=== PATIENT | male | born 1980 ===

== ENCOUNTER → 2016-11-07 | Outpatient (CLI) | payer OTHER | LOC: BMCIMAGING 10:04 | PROVIDERS: ATTEND Podiatrist Foot & Ankle Surgery | DX: M25.571 Pain in right ankle and joints of right foot (principal); M77.51 Other enthesopathy of right foot and ankle ==

== ENCOUNTER → 2017-05-01 | Outpatient (CLI) | payer OTHER | LOC: BMCIMAGING 11:07 | PROVIDERS: ATTEND Podiatrist Foot & Ankle Surgery | DX: Z09 Encounter for follow-up examination after completed treatment for conditions other than malignant neoplasm (principal); Z98.890 Other specified postprocedural states ==

== ENCOUNTER 2018-03-21 15:53 | Inpatient (IN) | payer OTHER ==
--- NOTE | 2018-03-21 17:17 | EDPHY ---
H & P Time Seen by Provider: 03/21/18 17:07 HPI/ROS: CHIEF COMPLAINT: Abdominal pain HISTORY OF PRESENT ILLNESS: Started with epigastric abdominal pain 2 days ago moved to his lower abdomen. Went to his primary care provider at [facility] today was referred here because of white blood cell count 13.7. He says he had some anorexia yesterday, pain is worse with movement today. Does not radiate. Not associated with urinary or testicular symptoms or fever. No vomiting or diarrhea. He feels little bit constipated. No recent injury or trauma. Symptoms moderate. REVIEW OF SYSTEMS: Eye: no change in vision ENT: no sore throat Cardiac: no chest pain or syncope Pulmonary: no cough or SOB Abdomen: HPI Musculoskeletal: no back pain Skin: no rash Neuro: no headache Constitutional: no fever : no urinary symptoms A comprehensive 10 point review of systems is otherwise negative aside from elements mentioned in the history of present illness. PAST MEDICAL HISTORY: Right ankle surgery Social history: Nonsmoker General Appearance: Alert and conversant, cooperative. Eyes: No scleral icterus. ENT, Mouth: Normal mucous membranes. Respiratory: Normal respiratory effort, breath sounds equal, lungs are clear to auscultation. Cardiovascular: Regular rate and rhythm. Gastrointestinal: Right lower quadrant tenderness with decreased bowel sounds. Normal male with no hernia. Neurological: Alert, face symmetric, normal motor and sensory in extremities. Skin: Warm and dry, no rashes. Musculoskeletal: No peripheral edema. Psychiatric: Not agitated. Emergency Department course/MDM: Labs from earlier today at 3:30 p.m. Reviewed include creatinine 1.[address] abdomen and pelvis discussed and consented to evaluate for appendicitis. Discussed with Keith at 1811. 1853: Dr. Parker requests admission, 1 g IV ertapenem. Smoking Status: Never smoked Constitutional: Initial Vital Signs Temperature (C) 37 C 03/21/18 15:56 Heart Rate 95 03/21/18 15:56 Respiratory Rate 16 03/21/18 15:56 Blood Pressure 165/98 H 03/21/18 15:56 O2 Sat (%) 94 03/21/18 15:56 O2 Delivery Mode Room Air Allergies/Adverse Reactions: No Known Allergies Allergy (Verified 03/21/18 15:56) Home Medications: Medication Instructions Recorded NK [No Known Home Meds] 03/21/18 Medical Decision Making - Diagnostics Imaging Results: Imaging Impressions Abdomen CT 03/21/18 17:17 Impression: 1. Regional inflammation in the right lower quadrant involving the appendix and terminal ileum. It is unclear whether this represents appendicitis with reactive inflammation of the terminal ileum or ileitis resulting in secondary inflammation of the appendix. 2. Trace fluid in the low pelvis. No abscess or evidence of bowel perforation. 3. Mild adynamic ileus. Less likely partial small bowel obstruction. Findings discussed with Emergency Department physician, Alejo Raymond on 03/21/2018 , 18:00. Imaging: Discussed imaging studies w/ scallop cutter Radiologist, I viewed and interpreted images myself Differential Diagnosis: Differential considered including but not limited to appendicitis, mesenteric adenitis, hernia, gastroenteritis. - Data Points Medications Given: Discontinued Medications Sodium Chloride (Ns) 1,000 mls @ 0 mls/hr IV EDNOW ONE; Wide Open PRN Reason: Protocol Stop: 03/21/18 18:12 Last Admin: 03/21/18 18:55 Dose: 1,000 mls Ertapenem 1 gm/ Sodium (Chloride) 100 mls @ 200 mls/hr IV EDNOW ONE PRN Reason: Protocol Stop: 03/21/18 19:21 Last Admin: 03/21/18 19:25 Dose: 100 mls Departure - Departure Disposition: [facility] Inpatient Acute Clinical Impression: Appendicitis Qualifiers: Appendicitis type: acute appendicitis Acute appendicitis type: with localized peritonitis Appendicitis gangrene presence: unspecified whether gangrene present Appendicitis perforation presence: unspecified whether perforation present Appendicitis abscess presence: unspecified whether abscess present Qualified Code(s): K35.30 - Acute appendicitis with localized peritonitis, without perforation or gangrene Condition: Good
[2018-03-21] MEDS ORDERED: IOPAMIDOL (ISOVUE-300) 100 ML BTL ONE (17:32)
[2018-03-21] MEDS: NS 1,000 ML IV ONE ×2 (18:21→18:55)
[2018-03-21] MEDS ORDERED: ERTAPENEM 1 GM in NS 100 ML IV ONE (18:52)
[2018-03-21] MEDS ORDERED: HYDROmorphONE/DILAUDID 1 MG/ML INJ IVP PRN (19:18)
[2018-03-21] MEDS ORDERED: ONDANSETRON 4 MG/2 ML VIAL IVP PRN (19:18)
[2018-03-21] MEDS ORDERED: NS 1,000 ML IV SCH (19:30)
--- NOTE | 2018-03-21 20:05 | GHP ---
DATE OF ADMISSION: 03/21/2018 ADMITTING DIAGNOSIS: Acute appendicitis by CT. HISTORY: The patient is a 37-year-old male who on Sunday morning had the onset of an epigastric pain (today is ). During the course of the day, the pain became worse. By 8 o'clock at night, it now became a bandlike lower abdominal discomfort. He was not hungry throughout the day and did not move his bowels. He slept very poorly that night. On Sunday he tried to eat oatmeal, but only was able to consume a small portion. He tried a Dulcolax suppository as he thought he was just constipated. He had a small amount of watery stool, but no improvement in his pain. The pain did wax and wane over the course of Sunday. He tried wonton soup for dinner, but was only able to eat a small amount. He also tried Pepto-Bismol. He slept a little more comfortably Sunday night. On , again, he tried a small amount of oatmeal, Metamucil, and water. He did have a small stool, but no change in his discomfort. He had an upper respiratory tract infection over the last weekend manifested by a sore throat. He has not had any diarrhea, save for what is mentioned above. He traveled to [place] recently. He had antibiotics for a sore throat earlier in the summer. He has had no prior abdominal surgery. He has no prior similar symptoms. There is no history of inflammatory bowel disease in the patient or his family. He was seen in the ER by Dr. Alejo Raymond. A CAT scan was performed, which showed a thickened appendix with inflammatory changes. PAST MEDICAL HISTORY: He smoked once in high school. He had 5 beers last Sunday, Sunday, but none since that time. He has no known drug allergies. He takes multivitamin. He takes an antidepressant (Trintellix). Surgeries have included removal of a right ankle bone spur. 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 He has had wisdom tooth extraction under general anesthetic. No history rheumatic fever, tuberculosis, hepatitis, or transfusions. REVIEW OF SYSTEMS: He wears lenses for visual correction. He does have dental crowns. No limits on his activities and no history of steroid use. He is a student at studying statistics. FAMILY HISTORY: His mother is 78. His father is 72, both are healthy. His mother is a type 2 diabetic. The patient has an older sister who is alive and well at 52. An older brother who is alive and well at 48, although he suffers from severe autism. No bleeding disorders, clotting disorders, difficulty with anesthesia in the patient or family. PHYSICAL EXAMINATION: GENERAL: He is awake and alert. VITAL SIGNS: His blood pressure is 151/89 at 83. Room air saturation 95%. Temperature 37. His white count is 13.7 with 77% neutrophils. His hematocrit is 44. His platelet count is 231. His BUN is 14. His creatinine is 1.2. Laboratories otherwise unremarkable. He is awake, alert, cooperative, and pleasant. NEUROLOGIC: Shows no focal lateralizing findings. HEAD: The skull is normocephalic and atraumatic. NECK: Supple and nontender. There are no carotid bruits. Thyroid is not enlarged. LYMPHATICS: There is no cervical, supraclavicular, axillary, or inguinal lymphadenopathy. BACK: Unremarkable. LUNGS/CHEST: Show good breath sounds and equal expansion bilaterally. CARDIAC: Shows S1, S2 normal. Normal split of S2 without murmurs, rubs, or gallops. ABDOMEN: Shows a distended abdomen which is nontender to cough at this time. He has hypoactive bowel sounds. Psoas and obturator signs are negative. To palpation on a scale of 1-10, left upper quadrant is 5, left mid abdomen is 5, left lower quadrant is 5, epigastrium is 5, periumbilical area 7, suprapubic area is 1, right upper quadrant is 5, right mid abdomen is 7, right lower quadrant is 8. IMPRESSION: I feel this patient has acute appendicitis. PLAN: We will plan to perform a laparoscopic possibly open appendectomy. He understands the planned procedure and wishes to proceed as outlined. /[id number]/MODL MTDD
[2018-03-21] MEDS ORDERED: HYDROmorphONE/DILAUDID 2 MG/ML INJ ONE (21:31)
[2018-03-21] MEDS: HYDROmorphONE/DILAUDID 2 MG/ML INJ IVP PRN (21:39)
[2018-03-21] MEDS ORDERED: LR 1,000 ML IV ONE (21:52)
--- NOTE | 2018-03-21 22:18 | POSTANESTH ---
Post Anesthetic Evaluation Cardiovascular Status: Normal, Stable Respiratory Status: Normal, Stable Level of Consciousness/Mental Status: Can Participate in Eval, Mildly Sleepy, Arousable Pain Control: Adequate, Prn Tx Ordered Nausea/Vomiting Control: Adequate, Prn Tx Ordered Complications Possibly Related to Anesthesia: None Noted
--- NOTE | 2018-03-21 22:20 | PDANEPAE ---
ANE History of Present Illness 37 yo male with acute appendicitis. ANE Past Medical History - Cardiovascular History Hx Hypertension: No Hx Arrhythmias: No Hx Chest Pain: No Hx Coronary Artery / Peripheral Vascular Disease: No - Pulmonary History Hx COPD: No Hx Asthma/Reactive Airway Disease: No Hx Recent Upper Respiratory Infection: No Hx Oxygen in Use at Home: No Hx Sleep Apnea: No - Endocrine History Hx Diabetes: No Hypothyroid: No Hyperthyroid: No Obesity: no - Renal History Hx Renal Disorders: No - Liver History Hx Hepatic Disorders: No - GI History Hx Gastrointestinal Disorders: No - Surgical History Prior Surgeries: ankle surgery 2018 ANE Review of Systems Review of Systems: - Systems Gastrointestinal: Reports: abdominal pain (since Sunday) ANE Patient History - Allergies Allergies/Adverse Reactions: No Known Allergies Allergy (Verified 03/21/18 15:56) - Home Medications Home Medications: Herbals/Supplements -Info Only 1 ea PO DAILY 03/21/18 [Last Taken Unknown] Multivitamins [Multivitamin (*)] 1 each PO DAILY 03/21/18 [Last Taken Unknown] - NPO status NPO Since - Liquids (Date): 03/21/18 NPO Since - Liquids (Time): 17:00 NPO Since - Solids (Date): 03/21/18 NPO Since - Solids (Time): 09:00 - Anes Hx Anes Hx: no prior problems - Smoking Hx Smoking Status: Never smoked - Family Anes Hx Family Anes Hx: neg - N/A ANE Labs/Vital Signs - Vital Signs Blood Pressure: 139/84 Heart Rate: 85 Respiratory Rate: 26 O2 Sat (%): 94 Height: 180.34 cm Weight: 81.647 kg ANE Physical Exam - Airway Neck exam: FROM Mallampati Score: Class 2 Mouth exam: kelly - Pulmonary Pulmonary: clear to auscultation - Cardiovascular Cardiovascular: regular rate and rhythym - ASA Status ASA Status: I, E ANE Anesthesia Plan Anesthesia Plan: general endotracheal anesthesia
[2018-03-21] MEDS ORDERED: PROPOFOL 200 MG/20 ML VIAL ONE ×2 (22:27)
[2018-03-21] MEDS ORDERED: ONDANSETRON 4 MG/2 ML VIAL ONE (22:27)
[2018-03-21] MEDS ORDERED: DEXAMETHASONE 4 MG/ML VIAL ONE (22:27)
[2018-03-21] MEDS ORDERED: ROCURONIUM 50 MG/5 ML VIAL ONE (22:27)
[2018-03-21] MEDS ORDERED: LIDOCAINE 2% 2 ML INJ ONE (22:27)
[2018-03-21] MEDS ORDERED: HEPARIN 5,000 UNIT/0.5 ML INJ ONE (22:33)
[2018-03-21] MEDS ORDERED: ceFAZolin 1 GM/5 ML SYR ONE (22:34)
[2018-03-21] MEDS ORDERED: fentaNYL 100 MCG/2 ML INJ ONE ×2 (22:44→23:12)
[2018-03-21] MEDS ORDERED: KETOROLAC 30 MG/1 ML SDV ONE (23:12)
[2018-03-21] MEDS ORDERED: oxyCODONE IR 5 MG TAB PO PRN (23:56)
[2018-03-21] MEDS ORDERED: PROMETHAZINE HCL 25 MG/ML INJ IVP PRN (23:56)
[2018-03-21] MEDS ORDERED: LR 500 ML IV PRN (23:56)
[2018-03-21] MEDS ORDERED: ALBUTEROL 3 ML DEYVIAL IH PRN (23:56)
[2018-03-21] MEDS ORDERED: NALOXONE HCL 0.4 MG/ML INJ IVP PRN (23:56)
--- NOTE | 2018-03-22 00:16 | POSTOPPROG ---
Post Op Note Date of Operation: 03/22/18 Surgeon: Grady Parker Pre-op Diagnosis: acute appendicitis Post-op Diagnosis: acute ruptured appendicitis with perinonitis Indication: acute appendicitis Procedure: Laparoscopic appendectomy with partial cecectomy Findings: acute ruptured appendicitis with perinonitis Inf/Abcess present in the surg proc area at time of surgery?: Yes Depth: Organ Space EBL: Minimal Total fluids administered: 750 Complications: none Drains: Brad Kyle Specimen(s): appendix and portion of cecum
[2018-03-22] MEDS ORDERED: fentaNYL 100 MCG/2 ML INJ ONE (00:19)
[2018-03-22] MEDS: fentaNYL 100 MCG/2 ML INJ IVP PRN ×2 (00:22→00:30)
[2018-03-22] MEDS: KETOROLAC 15 MG/1 ML SDV IVP SCH ×4 (00:24→17:15)
[2018-03-22] MEDS ORDERED: HYDROmorphONE/DILAUDID 2 MG/ML INJ ONE (00:43)
[2018-03-22] MEDS: HYDROmorphONE/DILAUDID 2 MG/ML INJ IVP PRN ×2 (00:44→01:48)
[2018-03-22] MEDS: ACETAMINOPHEN 500 MG TAB PO SCH ×4 (03:27→18:34)
--- NOTE | 2018-03-22 07:02 | GOP ---
DATE OF OPERATION: SURGEON: Grady Parker MD ANESTHESIA: General. PREOPERATIVE DIAGNOSIS: Acute appendicitis. POSTOPERATIVE DIAGNOSIS: Acute ruptured appendicitis with peritonitis. PROCEDURE PERFORMED: Laparoscopic appendectomy with partial cecectomy. There was a deep space (orga n level) infection. FINDINGS: Acute ruptured appendicitis with peritonitis. SPECIMENS: Appendix and portion of cecum. ESTIMATED BLOOD LOSS: Approximately 25-30 cc. INDICATIONS: Acute appendicitis. DESCRIPTION OF PROCEDURE: The patient was placed on the operating table in supine position. He had previously empty his bladder. He was placed under general endotracheal anesthesia. The abdomen was clipped, prepped, and draped. A surgical time-out was carried out and agreed to by all members of the operative team. The incisions then were carefully planned. There was an oblique 5 mm left lower quadrant incision, a transverse 5 mm suprapubic incision, and a curvilinear incision in the inferior umbilical fold. All 3 skin incisions were carried out sharply. Dissection was continued with electrocautery in all situ ations, and blunt dissection was also used at the infraumbilical incision. In that case, the subcuta neous tissue was cleared to the level of the rectus sheath which was elevated between Allis clamps. It was divided in the midline. A pursestring of #0 PDS was placed. The peritoneum was entered. An 11-12 mm disposable Dinh trocar was positioned. Intraabdominal insufflation was carried out to 15 mmHg. The patient was placed in the Trendelenburg position and rotated 5 degrees to the left. Worki ng space was developed. There were intense adhesions in the right lower quadrant. The terminal ileu m was mobilized. The cecum was mobilized along the white line of Toldt. A long and tedious dissecti on was carried out (approximately an extra 20 minutes) to carefully sort out the appendix from all th e adhesions. As it was difficult to discern the precise level of the appendiceal-cecal junction, a p ortion of the cecum was transected with a 45 mm Endo MAYTE stapler (x2) to completely encompass the spe cimen and make sure that there was a good nonedematous viable tissue for closure. The specimen was r emoved in an Endo Catch bag. Pneumoperitoneum was reestablished. Throughout the procedure, heparin and Ancef-containing irrigant has been used. This was continued. A 10 flat NELLA drain was placed in the pelvis and led out through the left lower quadrant. It was secu red at the skin level with a 3-0 silk suture using vertical mattress technique. The drain was connec calos to a bulb suction. The drain was placed deep in the pelvis. The superior port site was removed under direct vision. The umbilical port site was now removed. In verted simple suture of #0 PDS was placed in the midpoint of the fascial incision. It was tied. The pursestring was tied. The subcutaneous tissue was well irrigated. Hemostasis was excellent. The s kin was closed at the suprapubic and umbilical sites with inverted simple sutures of #4-0 Vicryl. Ma stisol and Steri-Strips were placed. Band-Aids were positioned. 4 x 4's were placed around the drai n and held in position with tape. The patient was transferred to recovery in stable and satisfactory condition. TOTAL FLUIDS ADMINISTERED: 750. COMPLICATIONS: None. DRAINS: Brad-Kyle drain placed. /[id number]/MODL
--- NOTE | 2018-03-22 09:13 | SOAPPROG ---
SOAP Progress Note Assessment/Plan: Assessment: 37yo M s/p lap appy, perfd - vitals stable. - abdomen is soft, NELLA is serosang - anticipate ileus, will start clears this AM - Will start abx for perf - ambulate. Anticipate that he will be here at least through tonight Plan: 03/22/18 09:12 Subjective: feels well Objective: Vital Signs Temp Pulse Resp BP Pulse Ox 36.5 C 54 L 16 109/62 94 03/22/18 07:27 03/22/18 07:27 03/22/18 07:27 03/22/18 07:27 03/22/18 07:27 Microbiology 03/21/18 23:01 Gram Stain - Final Peritoneal Fluid - Swab 03/21/18 03/22/18 03/23/18 05:59 05:59 05:59 Intake Total 2400 538 Output Total 125 250 Balance 8174 220 ICD10 Worksheet Patient Problems: Problems Problem Status Onset Appendicitis Acute
--- NOTE | 2018-03-22 10:31 | PDMN ---
Medical Necessity Medical [place] [facility] [place] [place], with Abscess or Peritonitis, by Laparoscopy: 37 y/o w/ acute appendicitis, ruptured w/ peritonitis, s/p lap appy w/ partial cecectomy, deep space level of infection noted, pt will require IV antibx, NELLA drain in place, cont IV fluids, IV opioids for pain management, anticipate pt will be here at least through tonight, change to IP status @ 0957 per MD order.
--- NOTE | 2018-03-22 15:22 | ASMTCMCOM ---
CM Note CM Note Notes: Pt admitted with an appendicitis. He is a student at , anticipate pt will dc home independent when medically stable. CM available for any changes. DC Plan: Independent Date Signed: 03/22/2018 03:17 PM Electronically Signed By:Doris Bhat RN
[2018-03-23] MEDS: KETOROLAC 15 MG/1 ML SDV IVP SCH ×5 (00:04→23:35)
[2018-03-23] MEDS: ACETAMINOPHEN 500 MG TAB PO SCH ×3 (03:52→20:15)
--- NOTE | 2018-03-23 07:56 | SOAPPROG ---
SOAP Progress Note Assessment/Plan: POD#2 03/23/18 07:52 Assessment: Doing quite well. Afebrile, incisions clean and dry, drainage sero-sanguineous, + BS, passing gas and small stool Plan: Start regular diet at noon continue IV antibiotics today if WBC and patient okay tomorrow will switch to oral antibiotics, DC drain and discharge Subjective: I'm feeling well Objective: Vital Signs Temp Pulse Resp BP Pulse Ox 36.6 C 65 18 117/62 93 03/22/18 23:08 03/22/18 15:19 03/22/18 23:08 03/22/18 23:08 03/22/18 23:08 03/22/18 03/23/18 03/24/18 05:59 05:59 05:59 Intake Total 350 Output Total 460 Balance -110 - Time Spent With Patient Time Spent With Patient: 15 Physical Exam - Physical Exam General Appearance: WD/WN, alert, no apparent distress Neck: full range of motion Respiratory: lungs clear, normal breath sounds Cardiac/Chest: regular rate, rhythm Abdomen: normal bowel sounds, non-tender, soft, other (Drainage serous) Male Genitalia: deferred Rectal: deferred Back: Normal inspection Skin: normal color, warm/dry Extremities: normal range of motion, non-tender Neuro/Psych: no motor/sensory deficits, alert, normal mood/affect, oriented x 3 ICD10 Worksheet Patient Problems: Problems Problem Status Onset Appendicitis Acute
[2018-03-23] MEDS ORDERED: HYDROmorphONE/DILAUDID 2 MG TAB PO PRN (07:59)
[2018-03-24] MEDS: ACETAMINOPHEN 500 MG TAB PO SCH ×2 (04:28→11:59)
[2018-03-24] MEDS: KETOROLAC 15 MG/1 ML SDV IVP SCH ×2 (05:42→12:00)
[2018-03-24 05:43] LABS: PLATELET COUNT 221 10^3/uL (150-400)
[2018-03-24 07:31] VITALS: BP 115/65
--- NOTE | 2018-03-24 10:55 | SOAPPROG ---
SOAP Progress Note Assessment/Plan: POD#2 03/23/18 07:52 Assessment: Doing quite well. Afebrile, incisions clean and dry, drainage sero-sanguineous, + BS, passing gas and small stool Plan: Start regular diet at noon continue IV antibiotics today if WBC and patient okay tomorrow will switch to oral antibiotics, DC drain and discharge 03/24/18 10:52 POD#3 Assessment: Doing well, eating a regular diet, VSS, Afebrile, NELLA output serous (drain removed), incisions clean and dry. Plan: Discharge Subjective: "I feel well" Objective: Vital Signs Temp Pulse Resp BP Pulse Ox 36.6 C 60 14 115/65 95 03/24/18 07:30 03/24/18 07:30 03/24/18 07:30 03/24/18 07:30 03/24/18 07:30 Laboratory Results 03/24/18 05:20 03/23/18 03/24/18 03/25/18 05:59 05:59 05:59 Intake Total 350 Output Total 460 10 Balance -110 -10 Physical Exam - Physical Exam General Appearance: WD/WN, alert, no apparent distress Respiratory: chest non-tender, lungs clear, normal breath sounds Cardiac/Chest: regular rate, rhythm Abdomen: normal bowel sounds, non-tender, soft Male Genitalia: deferred, other (Drain removed) Rectal: deferred Back: Normal inspection Skin: normal color, warm/dry Lymphatic: no adenopathy Extremities: normal range of motion, non-tender Neuro/Psych: no motor/sensory deficits, alert, normal mood/affect, oriented x 3 ICD10 Worksheet Patient Problems: Problems Problem Status Onset Appendicitis Acute
--- NOTE | 2018-03-24 11:41 | ASMTDCNOTE ---
Case Management Discharge Discharge Order Complete? Answers: No Patient to Obtain Answers: Independently Medications Transportation Arranged Answers: Family/Friends Discharge Comments Notes: CM spoke with RN, patient to discharge home independent with friends. CM available to follow if any additional needs should arise. Date Signed: 03/24/2018 11:40 AM Electronically Signed By:Ludmila Nj
--- NOTE | 2018-03-24 13:36 | ASDISCHSUM ---
Discharge Information Plan Status:Home with No Needs Medically Cleared to Leave:03/24/2018 Discharge Date:03/24/2018 12:06 PM CM D/C Disposition:Home, Routine, Self-Care ADT D/C Disposition:Home, Routine, Self-Care Projected Discharge Date:03/24/2018 12:00 AM Transportation at D/C:Family Discharge Delay Reason: Follow-Up Date:03/24/2018 12:00 AM Discharge Slot:2 - 12:01 pm - 18:00 pm Final Diagnosis:Appendicitis Placement Information Patient Contact Information Contact Name:BLAS Relationship:Father Address: Work Phone: City: [facility] Phone: [facility]/[employer] Code: Email: Financial Information Financial Class:BCOP Primary Plan Desc:[facility]AY PLAN Primary Plan Number:[id number] Secondary Plan Desc: Secondary Plan Number: Assessment Information [facility] CM Progress Note CM Note CM Note Notes: Pt admitted with an appendicitis. He is a student at , anticipate pt will dc home independent when medically stable. CM available for any changes. DC Plan: Independent Date Signed: 03/22/2018 03:17 PM Electronically Signed By:Doris Bhat RN Case Management Discharge Plan Note Case Management Discharge Discharge Order Complete? Answers: No Patient to Obtain Answers: Independently Medications Transportation Arranged Answers: Family/Friends Discharge Comments Notes: CM spoke with RN, patient to discharge home independent with friends. CM available to follow if any additional needs should arise. Date Signed: 03/24/2018 11:40 AM Electronically Signed By:Ludmila Nj Intervention Information
--- NOTE | 2018-03-24 18:15 | GDS ---
DISCHARGE DIAGNOSIS: Acute appendicitis with peritonitis. CONDITION AT DISCHARGE: Improved. OPERATION PERFORMED: Laparoscopic appendectomy. DISPOSITION: Home. DIET: Unrestricted, (although I have suggested he avoid constipating foods such as bananas, rice, applesauce, and cheese). Texture is unrestricted. MEDICATIONS: For pain control, I suggest that he take Tylenol 1000 mg every 8 hours. He is to take Toradol 10 mg every 6 hours for the next 3 days and then switch to Motrin 200 mg every 4 hours. He will take Dilaudid 2 to 4 mg as needed for severe pain. ACTIVITY: For the next 3 weeks he is to lift less than 10 pounds. He is to shower only. He is to keep the Steri-Strips in place. He is to take a multivitamin with zinc, copper, and C. He is to watch for signs of infection. Superficial-redness, warmth, swelling and tenderness. Deep space-abdominal pain, loss of appetite, fevers, chills, and malaise. He will follow up with Dr. Erlin Saravia in 2 weeks. HOSPITAL COURSE: The patient did very well. A drain had been placed, promptly yielded serous fluid. The only thing which is growing from the culture is a Strep epidermidis. He is discharged on Augmentin 875 mg twice a day for 5 days. He started passing gas the very first morning and his diet was advanced. He has done well. /[id number]/MODL MTDD
== END 2018-03-24 12:06 | disposition home or self-care (01) | DRG 331 ==
LOC: F3E 03-22 00:55 → OBSVTOIN 03-22 09:57
PROVIDERS: ADMIT Surgery; ATTEND Surgery
DX: K35.30 Acute appendicitis with localized peritonitis, without perforation or gangrene (principal); E86.9 Volume depletion, unspecified
CPT/HCPCS: G0378; J0696; J1100; J1170; J1335; J1644; J1885; J2405; J2704; J3010; Q9967

== ENCOUNTER → 2018-03-21 | Outpatient (CLI) | payer OTHER | LOC: FIMAGING 15:15 | PROVIDERS: ATTEND Physician Assistant | DX: R10.84 Generalized abdominal pain (principal); R14.0 Abdominal distension (gaseous) ==